=== PATIENT | female | born 1940 | race Caucasian/White ===

== ENCOUNTER 2016-11-11 09:11 | Outpatient (CLI) | payer OTHER, MEDICARE | END 2016-11-11 18:53 | disposition home or self-care (01) | LOC: SMA 09:11 | PROVIDERS: ATTEND Specialist | DX: Z12.31 Encounter for screening mammogram for malignant neoplasm of breast (principal) | CPT/HCPCS: 77067; G0202 ==

== ENCOUNTER 2017-12-27 10:00 | Outpatient (CLI) | payer OTHER, MEDICARE | END 2017-12-27 19:53 | disposition home or self-care (01) | LOC: SMA 10:00 | PROVIDERS: ATTEND Specialist | DX: Z12.31 Encounter for screening mammogram for malignant neoplasm of breast (principal); R92.1 Mammographic calcification found on diagnostic imaging of breast | CPT/HCPCS: 77067 ==

== ENCOUNTER 2019-01-01 09:49 | Outpatient (CLI) | payer OTHER, MEDICARE | END 2019-01-01 21:24 | disposition home or self-care (01) | LOC: SMA 09:49 | DX: Z12.31 Encounter for screening mammogram for malignant neoplasm of breast (principal) | CPT/HCPCS: 77067 ==

== ENCOUNTER 2020-02-19 09:00 | Outpatient (CLI) | payer OTHER, MEDICARE | END 2020-02-19 21:02 | disposition home or self-care (01) | LOC: SMA 09:00 | PROVIDERS: ATTEND Obstetrics & Gynecology | DX: Z12.31 Encounter for screening mammogram for malignant neoplasm of breast (principal) | CPT/HCPCS: 77067 ==